=== PATIENT | male | born 1945 | race Caucasian/White ===

== ENCOUNTER → 2017-05-08 | Outpatient (CLI) | payer MEDICARE | LOC: GMAH 10:34 | PROVIDERS: ATTEND Family Medicine | DX: E78.2 Mixed hyperlipidemia (principal); E11.9 Type 2 diabetes mellitus without complications; I10 Essential (primary) hypertension; Z12.5 Encounter for screening for malignant neoplasm of prostate | CPT/HCPCS: 84443; 84550; G0103 ==

== ENCOUNTER → 2019-05-12 | Outpatient (CLI) | payer MEDICARE | LOC: GMAH 10:16 | PROVIDERS: ATTEND Family Medicine | DX: I10 Essential (primary) hypertension (principal); E78.2 Mixed hyperlipidemia; E11.9 Type 2 diabetes mellitus without complications; Z12.5 Encounter for screening for malignant neoplasm of prostate | CPT/HCPCS: 84443; 84550; G0103 ==

== ENCOUNTER 2020-01-10 18:04 | Emergency (ER) | payer MEDICARE ==
--- NOTE | 2020-01-10 19:48 | CT ---
PROCEDURE: CT Head CLINICAL HISTORY: 74 years Male weakness, hx of previous strokes, mild confusion TECHNIQUE: Contiguous axial CT images obtained through the brain without IV contrast. Coronal and sagittal reformatted images also provided. This exam was performed according to our department optimization program which includes automated exposure control, adjustment of the mA and/or kv according to patient size and/or use of iterative reconstruction technique. COMPARISON: 03/01/2016 FINDINGS: There is no intracranial hemorrhage, extraaxial collection, or evidence of acute transcortical infarction. There are chronic-appearing left frontal, left parietal, left temporal, and bilateral periventricular infarcts. These have progressed since the prior exam of 2016. Confluent areas of low attenuation within the periventricular and subcortical white matter again seen, compatible with chronic microvascular disease. There is mild to moderate diffuse volume loss without midline shift. Vascular calcifications are noted. No lesion of the skull base or calvarium is identified. The paranasal sinuses and mastoid air cells are clear. IMPRESSION: No acute intracranial abnormality. Chronic ischemic changes have progressed since 2016. Diffuse volume loss. Electronically signed by: Dasha Alves MD 01/10/2020 7:46 PM [facility]
--- NOTE | 2020-01-10 19:51 | RAD ---
EXAM DESCRIPTION: XR Chest, 1 View CLINICAL HISTORY: 74 years Male generalized weakness TECHNIQUE: One view of the chest. COMPARISON: 03/02/2016 FINDINGS: Again seen are median sternotomy wires and surgical clips in the neck. The lungs are clear without focal consolidation, effusion, or pneumothorax. Stable cardiomediastinal silhouette without evidence of congestive failure. No acute osseous abnormalities. IMPRESSION: No acute cardiopulmonary abnormalities. Electronically signed by: Dasha Alves MD 01/10/2020 7:49 PM [facility]
[2020-01-10] MEDS ORDERED: POTASSIUM CHLORIDE ELIXIR 20 MEQ/15 ML UD PO ONE (20:13)
[2020-01-10] MEDS ORDERED: OSELTAMIVIR 75 MG CAP PO ONE (20:14)
[2020-01-10] MEDS ORDERED: IBUPROFEN 200 MG TAB PO ONE (20:15)
--- NOTE | 2020-01-10 20:20 | ED.PDOC ---
History of Present Illness - General Chief Complaint: General Stated Complaint: weakness and cough Time Seen by Provider: 01/10/20 18:28 Source: patient Exam Limitations: no limitations - History of Present Illness Initial Comments: The patient is a 74-year-old male presented emergency room secondary to vague generalized symptoms. The patient does have a runny nose and a little bit of a sore throat. His family reports that he has been having some mild increased confusion and some increased gait instability. The patient has difficulty communicating as well as ambulating to start with secondary to multiple strokes in the past. He has difficult to communicate with. No shortness of breath and no chest pain. No nausea or vomiting. No syncope. No recent trauma. As he has had multiple strokes in the past family is concerned that he may be experiencing sequela from another one. Timing/Duration: 24 hours Severity: moderate Improving Factors: nothing Worsening Factors: nothing Associated Symptoms: cough, loss of appetite, malaise, weakness - Generalized Allergies/Adverse Reactions: Allergies Sulfa Antibiotics Adverse Reaction (Verified 03/01/16 22:07) Home Medications: Ambulatory Orders Aspirin 325 mg PO QD 03/01/16 Glimepiride 1 mg PO BEDTIME 03/01/16 Glimepiride 2 mg PO DAILY 03/01/16 amLODIPine BESYLATE [Norvasc] 10 mg PO BID 03/01/16 Azithromycin Tab [Zithromax] 250 mg PO QD #5 tab 03/03/16 Cephalexin [Keflex] 500 mg PO TID #15 cap 03/03/16 Hydrochlorothiazide 12.5 mg PO QAM #30 tab 03/03/16 Metoprolol Tartrate 50 mg PO QPM #0 03/03/16 Metoprolol Tartrate 100 mg PO QAM #30 tab 03/03/16 Potassium Chloride [K-Tab] 10 meq PO QAM #30 tab 03/03/16 Valsartan 160 mg PO DAILY #0 03/03/16 Oseltamivir Capsule [Tamiflu] 75 mg PO BID 5 Days #10 capsule 01/10/20 Review of Systems - Review of Systems Constitutional: States: malaise, weakness - Generalized EENTM: States: nose congestion, throat pain - Mild Respiratory: States: cough Cardiology: States: no symptoms reported Gastrointestinal/Abdominal: States: no symptoms reported Genitourinary: States: no symptoms reported Musculoskeletal: States: no symptoms reported Skin: States: no symptoms reported Neurological: States: see HPI Endocrine: States: no symptoms reported All other Systems: No Change from Baseline Past Medical History (General) - Patient Medical History Hx Seizures: No Hx Stroke: Yes - 2000 Hx Dementia: No Hx Asthma: No Hx of COPD: No Hx Cardiac Disorders: Yes Hx Congestive Heart Failure: No Hx Pacemaker: No Hx Hypertension: Yes Hx Thyroid Disease: No Hx Diabetes: No Hx Gastroesophageal Reflux: No Hx Renal Disease: No Hx Cancer: No Hx of HIV: No Hx Hepatitis C: No Hx MRSA: Yes MRSA Source:: Wound Surgical History: coronary bypass surgery - Vaccination History Hx Tetanus, Diphtheria Vaccination: No Hx Influenza Vaccination: No Hx Pneumococcal Vaccination: No - Social History Hx Tobacco Use: Yes Hx Chewing Tobacco Use: Yes Hx Alcohol Use: No Hx Substance Use: No Hx Substance Use Treatment: No Hx Depression: No Hx Physical Abuse: No Hx Emotional Abuse: No Hx Suspected Abuse: No Family Medical History - Family History Mother Family History: Unknown Physical Exam - Physical Exam General Appearance: Alert, Comfortable, No apparent distress Eye Exam: bilateral normal Ears, Nose, Throat: hearing grossly normal, normal pharynx, nasal congestion, pharyngeal erythema Neck: non-tender, supple Respiratory: lungs clear - He does have a clearing cough., normal breath sounds, no respiratory distress, no accessory muscle use Cardiovascular/Chest: normal peripheral pulses, no edema, other - Regular rate Peripheral Pulses: radial,right: 2+, radial,left: 2+ Gastrointestinal/Abdominal: non tender, soft Rectal Exam: deferred Back Exam: no CVA tenderness, no vertebral tenderness Extremity: normal range of motion - Given his chronic neurological limitations, non-tender, no calf tenderness, normal capillary refill, pedal edema - He does have trace pedal edema to the right lower extremity 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 Chronic neurological changes related to previous stroke. Skin Exam: normal color - He does have multiple skin tags. Comments: Vital Signs - 24 hr 01/10/20 01/10/20 18:46 19:05 Temperature 100.7 F H Pulse Rate [ 93 H 92 H monitor] Respiratory 18 16 Rate Blood Pressure 162/79 182/89 [la] O2 Sat by Pulse 97 96 Oximetry Progress - Progress Progress: 01/10/20 20:23 The patient is a 74-year-old male presented emergency room with nonspecific symptoms. Work-up including x-rays, CT scans and lab work failed to show any other acute pathology aside from influenza A. Patient is going to be placed on Tamiflu for 5 days. He needs to keep himself well-hydrated. Motrin can be used for fever and discomfort. He has mild hypokalemia and was given a dose of oral potassium here. This needs to be followed back up with his primary care doctor in a week or so. ER warnings are given for any significant worsening. No evidence of any sepsis or hypoxia. josé [email or web address] [id number] - Results/Orders Results/Orders: CT scan of the head shows no acute pathology but multiple chronic pathology. See report for details. Chest x-ray shows no acute pathology. Chronic changes only. See report for details. EKG shows what I believe to be a normal sinus rhythm at 93 bpm. There is poor R wave progression. There is LVH criteria. No definitive ST segment or T wave changes indicative of acute ischemia. There is moderate interventricular conduction delay. Correspondingly there is an increased QT interval. Laboratory Tests 01/10/20 01/10/20 01/10/20 19:05 19:05 19:05 WBC 10.7 RBC 4.56 L Hgb 14.0 Hct 41.5 L MCV 91.1 MCH 30.8 MCHC 33.8 RDW 13.8 Plt Count 207 MPV 9.7 Absolute Neuts (auto) 8.20 H Absolute Lymphs (auto) 0.70 L Absolute Monos (auto) 1.60 H Absolute Eos (auto) 0.10 Absolute Basos (auto) 0.10 Neutrophils % 76.6 Lymphocytes % 7.0 L Monocytes % 14.6 H Eosinophils % 0.9 L Basophils % 0.9 PT 10.3 INR 1.04 PTT (SP) 29.9 Sodium 138 Potassium 3.2 L Chloride 100 L Carbon Dioxide 28 Anion Gap 13.2 BUN 18 Creatinine 1.74 H BUN/Creatinine Ratio 10.3 Random Glucose 170 H Serum Osmolality 281.6 Calcium 9.3 Magnesium 2.2 Total Bilirubin 0.6 AST 20 ALT 19 Alkaline Phosphatase 88 Creatine Kinase 55 CK-MB (CK-2) 1.5 CK-MB (CK-2) % Not Reportable Troponin I 0.04 B-Natriuretic Peptide 100.0 Serum Total Protein 7.3 Albumin 4.0 Globulin 3.3 Albumin/Globulin Ratio 1.2 Lipase 43 Departure - Departure Clinical Impression: Influenza A, Hypokalemia Disposition: Discharge to Home or Self Care Condition: Fair Departure Forms: ED Discharge - Pt. Copy, Patient Portal Self Enrollment Instructions: Flu, Adult (DC), Hypokalemia (DC) Diet: bland diet Activity: increase activity as tolerated Referrals: Andrew Polk MD [Primary Care Provider] - 1-2 Weeks Prescriptions: Oseltamivir Capsule [Tamiflu] 75 mg PO BID 5 Days #10 capsule Home Medications: Ambulatory Orders Aspirin 325 mg PO QD 03/01/16 Glimepiride 1 mg PO BEDTIME 03/01/16 Glimepiride 2 mg PO DAILY 03/01/16 amLODIPine BESYLATE [Norvasc] 10 mg PO BID 03/01/16 Azithromycin Tab [Zithromax] 250 mg PO QD #5 tab 03/03/16 Cephalexin [Keflex] 500 mg PO TID #15 cap 03/03/16 Hydrochlorothiazide 12.5 mg PO QAM #30 tab 03/03/16 Metoprolol Tartrate 50 mg PO QPM #0 03/03/16 Metoprolol Tartrate 100 mg PO QAM #30 tab 03/03/16 Potassium Chloride [K-Tab] 10 meq PO QAM #30 tab 03/03/16 Valsartan 160 mg PO DAILY #0 03/03/16 Oseltamivir Capsule [Tamiflu] 75 mg PO BID 5 Days #10 capsule 01/10/20 Additional Instructions: The patient is a 74-year-old male presented emergency room with nonspecific symptoms. Work-up including x-rays, CT scans and lab work failed to show any other acute pathology aside from influenza A. Patient is going to be placed on Tamiflu for 5 days. He needs to keep himself well-hydrated. Motrin can be used for fever and discomfort. He has mild hypokalemia and was given a dose of oral potassium here. This needs to be followed back up with his primary care doctor in a week or so. ER warnings are given for any significant worsening.
[2020-01-10 20:37] VITALS: BP 143/96; TEMP 99.9; O2SAT 97
== END 2020-01-10 20:51 | disposition home or self-care (01) ==
LOC: ER 18:04
DX: J10.1 Influenza due to other identified influenza virus with other respiratory manifestations (principal); E87.6 Hypokalemia; I51.9 Heart disease, unspecified; I10 Essential (primary) hypertension; Z86.73 Personal history of transient ischemic attack (TIA), and cerebral infarction without residual deficits; Z79.899 Other long term (current) drug therapy; Z79.82 Long term (current) use of aspirin; Z88.2 Allergy status to sulfonamides

== ENCOUNTER 2020-03-15 17:14 | Emergency (ER) | payer MEDICARE ==
--- NOTE | 2020-03-15 18:26 | RAD ---
EXAM DESCRIPTION: Abdomen Series CLINICAL HISTORY: 74 years Male increassed fatigue, dementia COMPARISON: None TECHNIQUE: Three images of the chest and abdomen were obtained. FINDINGS: Gas is seen throughout the bowel. Bowel is normal in caliber. Moderate to marked constipation. No intraperitoneal free air. No abnormal calcifications seen. Cardiac size is within normal limits. Central vessels are not increased. Mediastinal surgical clips and sternal wires noted. No infiltrates or effusions seen. Surgical clips cervical soft tissues bilaterally. IMPRESSION: Nonspecific bowel gas pattern. No bowel obstruction or perforation. No active cardiopulmonary disease. Electronically signed by: Mechelle Browne MD 03/15/2020 6:24 PM CDT
[2020-03-15] MEDS ORDERED: SODIUM CHLORIDE 0.9% 1000ML 1,000 ML IVS ONE (18:35)
--- NOTE | 2020-03-15 21:50 | ED.PDOC ---
History of Present Illness - General Chief Complaint: General Stated Complaint: weakness,low HR Time Seen by Provider: 03/15/20 17:18 Source: patient Exam Limitations: no limitations - History of Present Illness Initial Comments: The patient is a 74-year-old male brought in by his secondary to increased drowsiness over the last 3 or 4 days. No other symptoms. The patient does have significant dementia so communicating any difficulty is almost impossible. No evidence of any pain. No history of coughing. No decreased eating. No diarrhea or nausea or vomiting. No new rashes. No falls. No real increased confusion just increased drowsiness. No focal neurological changes. Timing/Duration: other - 3 days Severity: mild Improving Factors: nothing Worsening Factors: nothing Associated Symptoms: denies symptoms Allergies/Adverse Reactions: Allergies Sulfa Antibiotics Adverse Reaction (Verified 03/01/16 22:07) Home Medications: Ambulatory Orders amLODIPine BESYLATE [Norvasc] 5 mg PO DAILY 03/01/16 Amiodarone HCl 200 mg PO DAILY 03/15/20 Apixaban [Eliquis] 5 mg PO BID 03/15/20 Aspirin [Aspirin EC Low Dose] 81 mg PO DAILY 03/15/20 Atorvastatin Calcium [Lipitor] 20 mg PO BEDTIME 03/15/20 Glipizide 5 mg PO BID 03/15/20 QUEtiapine FUMARATE [SEROquel] 25 mg PO DAILY 03/15/20 Sertraline HCl 25 mg PO DAILY 03/15/20 Review of Systems - Review of Systems Review of Systems: 03/15/20 21:49 Review of systems is given by the patient's is he is unable to. Constitutional: States: malaise EENTM: States: no symptoms reported Respiratory: States: no symptoms reported Cardiology: States: no symptoms reported Gastrointestinal/Abdominal: States: no symptoms reported Genitourinary: States: no symptoms reported Musculoskeletal: States: no symptoms reported Skin: States: no symptoms reported Neurological: States: see HPI All other Systems: No Change from Baseline Past Medical History (General) - Patient Medical History Hx Seizures: No Hx Stroke: Yes - 2000 Hx Dementia: No Hx Asthma: No Hx of COPD: No Hx Cardiac Disorders: Yes - Atrial fib Hx Congestive Heart Failure: No Hx Pacemaker: No Hx Hypertension: Yes Hx Thyroid Disease: No Hx Diabetes: Yes Hx Gastroesophageal Reflux: No Hx Renal Disease: No Hx Cancer: No Hx of HIV: No Hx Hepatitis C: No Hx MRSA: Yes MRSA Source:: Wound Surgical History: coronary bypass surgery - Vaccination History Hx Tetanus, Diphtheria Vaccination: No Hx Influenza Vaccination: Yes Hx Pneumococcal Vaccination: Yes - Social History Hx Tobacco Use: Yes Hx Chewing Tobacco Use: Yes Hx Alcohol Use: No Hx Substance Use: No Hx Substance Use Treatment: No Hx Depression: No Hx Physical Abuse: No Hx Emotional Abuse: No Hx Suspected Abuse: No Family Medical History - Family History Mother Family History: Unknown Physical Exam - Physical Exam General Appearance: Alert, Comfortable, No apparent distress Eye Exam: bilateral normal Ears, Nose, Throat: hearing grossly normal, normal pharynx Neck: non-tender, supple Respiratory: lungs clear, normal breath sounds, no respiratory distress, no accessory muscle use Cardiovascular/Chest: normal peripheral pulses, regular rate, rhythm, no edema Peripheral Pulses: radial,right: 2+, radial,left: 2+, dorsalis pedis,right: 2+, dorsalis pedis,left: 2+ Gastrointestinal/Abdominal: non tender, soft Rectal Exam: deferred Back Exam: no CVA tenderness, no vertebral tenderness Extremity: normal range of motion, non-tender, normal inspection, no pedal estrella a, normal capillary refill 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, alert, normal mood/affect - Given his chronic dementia, other - Chronic dementia Skin Exam: normal color Comments: Vital Signs - 24 hr 03/15/20 03/15/20 03/15/20 17:27 18:15 18:32 Temperature 97.6 F Pulse Rate [ 61 67 63 Left Brachial] Respiratory 16 16 Rate Blood Pressure 123/74 126/85 145/79 [Left Arm] O2 Sat by Pulse 99 96 Oximetry 03/15/20 03/15/20 03/15/20 18:33 19:15 20:15 Temperature Pulse Rate [ 76 59 L 65 Left Brachial] Respiratory 16 14 Rate Blood Pressure 119/72 139/75 144/77 [Left Arm] O2 Sat by Pulse 97 96 Oximetry 03/15/20 17:34 Telemetry .CONTINUOUS Vital Signs-Tilt PRN 03/15/20 17:45 EKG STAT shows sinus bradycardia at 58 bpm. Normal axis. Poor R wave progression. Borderline LVH. No ST segment or T wave changes indicative of acute ischemia. Borderline prolonged QT interval. First-degree AV block. Laboratory Results - last 24 hr 03/15/20 03/15/20 03/15/20 17:45 17:45 17:45 WBC 10.0 RBC 4.79 Hgb 14.5 Hct 43.1 MCV 89.9 MCH 30.3 MCHC 33.7 RDW 13.1 Plt Count 225 MPV 9.1 Absolute Neuts (auto) 7.20 H Absolute Lymphs (auto) 1.50 Absolute Monos (auto) 1.00 H Absolute Eos (auto) 0.20 Absolute Basos (auto) 0.10 Neutrophils % 71.8 Lymphocytes % 15.0 L Monocytes % 10.4 H Eosinophils % 1.9 Basophils % 0.9 PT 10.4 INR 1.05 PTT (SP) 29.9 Sodium 137 Potassium 4.2 Chloride 104 Carbon Dioxide 28 Anion Gap 9.2 L BUN 32 H Creatinine 2.50 H BUN/Creatinine Ratio 12.8 Random Glucose 107 H Serum Osmolality 281.2 Lactic Acid Calcium 8.9 Magnesium 2.5 Total Bilirubin 0.5 AST 13 ALT 16 Alkaline Phosphatase 79 Creatine Kinase 30 L CK-MB (CK-2) 1.9 CK-MB (CK-2) % Not Reportable Troponin I 0.02 B-Natriuretic Peptide 25.1 Serum Total Protein 6.5 Albumin 3.3 Globulin 3.2 Albumin/Globulin Ratio 1.0 L TSH 4.66 Urine Color Urine Appearance Urine pH Ur Specific Pimento Urine Protein Urine Glucose (UA) Urine Ketones Urine Blood Urine Nitrite Urine Bilirubin Urine Urobilinogen Ur Leukocyte Esterase Urine RBC Urine WBC Ur Epithelial Cells Urine Bacteria 03/15/20 03/15/20 17:45 20:40 WBC RBC Hgb Hct MCV MCH MCHC RDW Plt Count MPV Absolute Neuts (auto) Absolute Lymphs (auto) Absolute Monos (auto) Absolute Eos (auto) Absolute Basos (auto) Neutrophils % Lymphocytes % Monocytes % Eosinophils % Basophils % PT INR PTT (SP) Sodium Potassium Chloride Carbon Dioxide Anion Gap BUN Creatinine BUN/Creatinine Ratio Random Glucose Serum Osmolality Lactic Acid 1.1 Calcium Magnesium Total Bilirubin AST ALT Alkaline Phosphatase Creatine Kinase CK-MB (CK-2) CK-MB (CK-2) % Troponin I B-Natriuretic Peptide Serum Total Protein Albumin Globulin Albumin/Globulin Ratio TSH Urine Color Yellow Urine Appearance Clear Urine pH 6.0 Ur Specific Pimento 1.010 Urine Protein Negative Urine Glucose (UA) Negative Urine Ketones Negative Urine Blood Negative Urine Nitrite Negative Urine Bilirubin Negative Urine Urobilinogen 0.2 Ur Leukocyte Esterase Negative Urine RBC 0 Urine WBC 0 Ur Epithelial Cells 0-1 Urine Bacteria 0 Acute abdominal series shows moderate constipation otherwise no obvious acute pathology. Progress - Progress Progress: 03/15/20 21:52 The patient is a 74-year-old male with significant dementia presenting with his secondary to increased malaise and drowsiness over the last 3 or 4 days. The patient does have mild to moderate dehydration with mild acute renal failure. This is likely contributing to increasing the potency of several of his medications including the Seroquel and amiodarone. He does have mild bradycardia. I would recommend holding the Seroquel and amiodarone for 2 days. I would recommend that the patient at least take in 1/2 a gallon to three quarters of a gallon of liquid daily. The patient does have some constipation noted on x-ray and this is likely also a function of dehydration. A daily fiber supplement such as Metamucil may help. I would also recommend holding the cholesterol medication for the next couple of days as well until he is better hydrated. He did receive a liter of IV fluids here. He does need to follow back up with his primary care doctor in for 5 days for a repeat blood draw to check on his kidneys. ER warnings are given. josé clark [id number] Departure - Departure Clinical Impression: Dehydration, Somnolence, daytime Constipation Qualifiers: Constipation type: unspecified constipation type Qualified Code(s): K59.00 - Constipation, unspecified Acute renal failure Qualifiers: Acute renal failure type: unspecified Qualified Code(s): N17.9 - Acute kidney failure, unspecified Adverse effects of medication Qualifiers: Encounter type: initial encounter Qualified Code(s): T50.905A - Adverse effect of unspecified drugs, medicaments and biological substances, initial encounter Disposition: Discharge to Home or Self Care Departure Forms: ED Discharge - Pt. Copy, Patient Portal Self Enrollment Instructions: Dehydration, Adult (DC), Constipation, Adult (DC) Diet: regular diet - High-fiber Activity: increase activity as tolerated Referrals: Andrew Polk MD [Primary Care Provider] - 1-2 Weeks Home Medications: Ambulatory Orders amLODIPine BESYLATE [Norvasc] 5 mg PO DAILY 03/01/16 Amiodarone HCl 200 mg PO DAILY 03/15/20 Apixaban [Eliquis] 5 mg PO BID 03/15/20 Aspirin [Aspirin EC Low Dose] 81 mg PO DAILY 03/15/20 Atorvastatin Calcium [Lipitor] 20 mg PO BEDTIME 03/15/20 Glipizide 5 mg PO BID 03/15/20 QUEtiapine FUMARATE [SEROquel] 25 mg PO DAILY 03/15/20 Sertraline HCl 25 mg PO DAILY 03/15/20 Additional Instructions: The patient is a 74-year-old male with significant dementia presenting with his secondary to increased malaise and drowsiness over the last 3 or 4 days. The patient does have mild to moderate dehydration with mild acute renal failure. This is likely contributing to increasing the potency of several of his medications including the Seroquel and amiodarone. He does have mild bradycardia. I would recommend holding the Seroquel and amiodarone for 2 days. I would recommend that the patient at least take in 1/2 a gallon to three quarters of a gallon of liquid daily. The patient does have some constipation noted on x-ray and this is likely also a function of dehydration. A daily fiber supplement such as Metamucil may help. I would also recommend holding the cholesterol medication for the next couple of days as well until he is better hydrated. He did receive a liter of IV fluids here. He does need to follow back up with his primary care doctor in for 5 days for a repeat blood draw to check on his kidneys. ER warnings are given.
[2020-03-15 22:24] VITALS: BP 157/99; TEMP 98.4; O2SAT 99
== END 2020-03-15 22:20 | disposition home or self-care (01) ==
LOC: ER 17:14
DX: E86.0 Dehydration (principal); K59.00 Constipation, unspecified; N17.9 Acute kidney failure, unspecified; R53.1 Weakness; T50.905A Adverse effect of unspecified drugs, medicaments and biological substances, initial encounter; I10 Essential (primary) hypertension; I48.91 Unspecified atrial fibrillation; E11.9 Type 2 diabetes mellitus without complications; Z79.82 Long term (current) use of aspirin; Z79.899 Other long term (current) drug therapy; Z86.73 Personal history of transient ischemic attack (TIA), and cerebral infarction without residual deficits; Z87.891 Personal history of nicotine dependence; Y92.9 Unspecified place or not applicable
CPT/HCPCS: 36415; 74019; 80053; 81001; 82550; 82553; 83605; 83735; 83880; 84443; 84484; 85025; 85610; 85730; 87502; 93005; J7030

== ENCOUNTER 2020-04-17 13:23 | Emergency (ER) | payer MEDICARE ==
[2020-04-17] MEDS ORDERED: PROCHLORPERAZINE INJ 10 MG/2 ML VIAL IV ONE (15:24)
--- NOTE | 2020-04-17 16:15 | CT ---
EXAM: CT Head Without Intravenous Contrast CLINICAL HISTORY: Worsening head pain on blood Eloquis. TECHNIQUE: Axial computed tomography images of the head/brain without intravenous contrast. Sagittal and coronal reformatted images were created and reviewed. This CT exam was performed using one or more of the following dose reduction techniques: automated exposure control, adjustment of the mA and/or kV according to patient size, and/or use of iterative reconstruction technique. COMPARISON: 01/10/2020. FINDINGS: Brain: Encephalomalacia consistent with old left MCA territory and basal ganglia infarcts. There is age related cortical atrophy and periventricular white matter hypodensity most consistent with chronic small ischemic change. No acute infarct, hemorrhage or mass. Ventricles: Unremarkable. No ventriculomegaly. Bones/joints: Unremarkable. No acute fracture. Soft tissues: Unremarkable. Sinuses: Unremarkable as visualized. No acute sinusitis. Mastoid air cells: Unremarkable as visualized. No mastoid effusion. IMPRESSION: Stable chronic changes as above. No acute disease. Electronically signed by: Sandra Nathan MD 04/17/2020 4:14 PM CDT
--- NOTE | 2020-04-17 16:21 | ED.PDOC ---
History of Present Illness - General Chief Complaint: Headache Stated Complaint: occipital headache Time Seen by Provider: 04/17/20 15:22 Source: patient, RN notes reviewed, Vital Signs reviewed, family - Exam Limitations: no limitations - History of Present Illness Initial Comments: Patient is a 74-year-old white male who presents with complaints of headache and neck pain. This started a couple of days ago and has worsened. Patient denies any falls or trauma. He is on Eliquis. Patient denies any fever, chills, nausea, vomiting, diarrhea.The headache is throbbing in nature. Nothing seems to make it better, worse when he bends over. The pain is moderate in intensity. It is nonradiating. The pain is the worst at the base of his skull bilaterally where the head attaches to the neck. He has denies midline tenderness to palpation Allergies/Adverse Reactions: Allergies Sulfa Antibiotics Adverse Reaction (Verified 03/01/16 22:07) Home Medications: Ambulatory Orders amLODIPine BESYLATE [Norvasc] 5 mg PO DAILY 03/01/16 Amiodarone HCl 200 mg PO DAILY 03/15/20 Apixaban [Eliquis] 5 mg PO BID 03/15/20 Aspirin [Aspirin EC Low Dose] 81 mg PO DAILY 03/15/20 Atorvastatin Calcium [Lipitor] 20 mg PO BEDTIME 03/15/20 Glipizide 5 mg PO BID 03/15/20 QUEtiapine FUMARATE [SEROquel] 25 mg PO DAILY 03/15/20 Sertraline HCl 25 mg PO DAILY 03/15/20 Prochlorperazine Tab [Compazine Tab] 10 mg PO Q8H #12 tab 04/17/20 Past Medical History (General) - Patient Medical History Hx Seizures: No Hx Stroke: Yes - 2000 Hx Dementia: No Hx Asthma: No Hx of COPD: No Hx Cardiac Disorders: Yes - Atrial fib Hx Congestive Heart Failure: No Hx Pacemaker: No Hx Hypertension: Yes Hx Thyroid Disease: No Hx Diabetes: Yes Hx Gastroesophageal Reflux: No Hx Renal Disease: No Hx Cancer: No Hx of HIV: No Hx Hepatitis C: No Hx MRSA: Yes MRSA Source:: Wound Surgical History: coronary bypass surgery, other - Vaccination History Hx Tetanus, Diphtheria Vaccination: No Hx Influenza Vaccination: Yes Hx Pneumococcal Vaccination: Yes - Social History Hx Tobacco Use: Yes Hx Chewing Tobacco Use: Yes Hx Alcohol Use: No Hx Substance Use: No Hx Substance Use Treatment: No Hx Depression: No Hx Physical Abuse: No Hx Emotional Abuse: No Hx Suspected Abuse: No Family Medical History - Family History Mother Family History: Unknown Progress - Progress Progress: Differential diagnosis: Intracranial bleed, tension headache, migraine headache, cervical spine fracture among others. 04/17/20 17:06 Patient's headache has resolved after the IV Compazine. I suspect this is a tension headache. Patient has spasms at the base of his occiput where it attaches to the cervical spine. CT scan is unremarkable. Plan on discharge home with follow-up with PCP. I will prescribe Compazine for his headaches. I discussed this plan of care with the patient and his and they voiced understanding and agreement with the plan of care. aMyo Quinones M.D. #[id number] - Results/Orders Results/Orders: EXAM: CT Head Without Intravenous Contrast CLINICAL HISTORY: Worsening head pain on blood Eloquis. TECHNIQUE: Axial computed tomography images of the head/brain without intravenous contrast. Sagittal and coronal reformatted images were created and reviewed. This CT exam was performed using one or more of the following dose reduction techniques: automated exposure control, adjustment of the mA and/or kV according to patient size, and/or use of iterative reconstruction technique. COMPARISON: 01/10/2020. FINDINGS: Brain: Encephalomalacia consistent with old left MCA territory and basal ganglia infarcts. There is age related cortical atrophy and periventricular white matter hypodensity most consistent with chronic small ischemic change. No acute infarct, hemorrhage or mass. Ventricles: Unremarkable. No ventriculomegaly. Bones/joints: Unremarkable. No acute fracture. Soft tissues: Unremarkable. Sinuses: Unremarkable as visualized. No acute sinusitis. Mastoid air cells: Unremarkable as visualized. No mastoid effusion. IMPRESSION: Stable chronic changes as above. No acute disease. Electronically signed by: Sandra Nathan MD 04/17/2020 4:14 PM Vital Signs 04/17/20 04/17/20 13:40 14:24 Temperature 97.4 F L 97.4 F L Pulse Rate [ 70 60 left brachial] Respiratory 18 18 Rate Blood Pressure 176/85 126/89 [left brachial] O2 Sat by Pulse 99 96 Oximetry Departure - Departure Clinical Impression: Headache Qualifiers: Headache type: tension-type Headache chronicity pattern: acute headache Intractability: not intractable Qualified Code(s): G44.209 - Tension-type headache, unspecified, not intractable Time of Disposition: 17:13 Disposition: Discharge to Home or Self Care Condition: Good Departure Forms: ED Discharge - Pt. Copy, Patient Portal Self Enrollment Instructions: DI for Headache Diet: resume usual diet Activity: ambulate only with walker, increase activity as tolerated Referrals: Andrew Polk MD [Primary Care Provider] - 1-5 Days Prescriptions: Prochlorperazine Tab [Compazine Tab] 10 mg PO Q8H #12 tab Home Medications: Ambulatory Orders amLODIPine BESYLATE [Norvasc] 5 mg PO DAILY 03/01/16 Amiodarone HCl 200 mg PO DAILY 03/15/20 Apixaban [Eliquis] 5 mg PO BID 03/15/20 Aspirin [Aspirin EC Low Dose] 81 mg PO DAILY 03/15/20 Atorvastatin Calcium [Lipitor] 20 mg PO BEDTIME 03/15/20 Glipizide 5 mg PO BID 03/15/20 QUEtiapine FUMARATE [SEROquel] 25 mg PO DAILY 03/15/20 Sertraline HCl 25 mg PO DAILY 03/15/20 Prochlorperazine Tab [Compazine Tab] 10 mg PO Q8H #12 tab 04/17/20
[2020-04-17 18:33] VITALS: TEMP 97.6; O2SAT 99
[2020-04-17 18:34] VITALS: BP 103/45
== END 2020-04-17 17:25 | disposition home or self-care (01) ==
LOC: ER 13:23
DX: G44.209 Tension-type headache, unspecified, not intractable (principal); I48.91 Unspecified atrial fibrillation; E11.9 Type 2 diabetes mellitus without complications; I10 Essential (primary) hypertension; Z79.01 Long term (current) use of anticoagulants; Z87.891 Personal history of nicotine dependence
CPT/HCPCS: 70450; J0780

== ENCOUNTER 2020-04-25 16:01 | Emergency (ER) | payer MEDICARE ==
[2020-04-25] MEDS ORDERED: SODIUM CHLORIDE 0.9% (FLUSH) 10 ML SYG IV PRN (16:18)
[2020-04-25 16:31] VITALS: TEMP 98
[2020-04-25] MEDS ORDERED: NEOMYCIN-BACITRACIN-POLYMYXIN 0.9 GM UD TOP ONE (16:53)
--- NOTE | 2020-04-25 16:59 | RAD ---
EXAM DESCRIPTION: Chest,1 View CLINICAL HISTORY: Fell, occipital head collided on parking lot cemented COMPARISON: Chest radiograph dated January 10, 2020 TECHNIQUE: One view radiograph of the chest FINDINGS: Postsurgical changes with median sternotomy wires and ostial marker. Cardiac silhouette shows normal heart size. Pulmonary vascularity is within normal limits. Lungs show no confluent infiltrates. No pleural effusion. No pneumothorax. No acute osseous abnormality. IMPRESSION: No acute cardiopulmonary process. Electronically signed by: Yobany Esteban MD 04/25/2020 4:58 PM CDT
--- NOTE | 2020-04-25 17:01 | ED.PDOC ---
History of Present Illness - General Chief Complaint: Trauma Time Seen by Provider: 04/25/20 16:18 Source: patient, family Exam Limitations: no limitations - History of Present Illness Initial Comments[facility] AND HIT OCCIPITAL HEAD. NO LOC. USES WALKER, WITNESSED AND NOTICED HE TRIPPED/SLIPPED. DENIES PAIN. H/O STROKE - SLURS SPEECH AT BASELINE; NO ACUTE CHANGE TODAY. ELIQUIS FOR AFIB. Severity: moderate Improving Factors: nothing Worsening Factors: nothing Associated Symptoms: denies symptoms Allergies/Adverse Reactions: Allergies Sulfa Antibiotics Adverse Reaction (Verified 03/01/16 22:07) Home Medications: Ambulatory Orders amLODIPine BESYLATE [Norvasc] 5 mg PO DAILY 03/01/16 Amiodarone HCl 200 mg PO DAILY 03/15/20 Apixaban [Eliquis] 5 mg PO BID 03/15/20 Aspirin [Aspirin EC Low Dose] 81 mg PO DAILY 03/15/20 Atorvastatin Calcium [Lipitor] 20 mg PO BEDTIME 03/15/20 Glipizide 5 mg PO BID 03/15/20 QUEtiapine FUMARATE [SEROquel] 25 mg PO DAILY 03/15/20 Sertraline HCl 25 mg PO DAILY 03/15/20 Prochlorperazine Tab [Compazine Tab] 10 mg PO Q8H #12 tab 04/17/20 Review of Systems - Review of Systems Constitutional: Denies: chills, fever, weakness EENTM: States: other - PAIN IN BACK OF HEAD. . Denies: eye pain, blurred vision, ear pain, nose pain, throat pain, mouth pain Respiratory: Denies: cough, short of breath Cardiology: Denies: chest pain, palpitations Gastrointestinal/Abdominal: Denies: abdominal pain, nausea Genitourinary: Denies: dysuria, frequency Musculoskeletal: Denies: back pain, joint pain, neck pain Skin: Denies: lesions, lumps Neurological: States: headache - OCCIPITAL, FROM FALL. . Denies: weakness Endocrine: Denies: unexplained weight gain, unexplained weight loss Hematologic/Lymphatic: States: easy bleeding, easy bruising All other Systems: Reviewed and Negative Past Medical History (General) - Patient Medical History Hx Seizures: No Hx Stroke: Yes - 2000 Hx Dementia: No Hx Asthma: No Hx of COPD: No Hx Cardiac Disorders: Yes - Atrial fib Hx Congestive Heart Failure: No Hx Pacemaker: No Hx Hypertension: Yes Hx Thyroid Disease: No Hx Diabetes: Yes Hx Gastroesophageal Reflux: No Hx Renal Disease: No Hx Cancer: No Hx of HIV: No Hx Hepatitis C: No Hx MRSA: Yes MRSA Source:: Wound Surgical History: other - Vaccination History Hx Tetanus, Diphtheria Vaccination: Yes Hx Influenza Vaccination: Yes Hx Pneumococcal Vaccination: Yes - Social History Hx Tobacco Use: Yes Hx Chewing Tobacco Use: No Hx Alcohol Use: No Hx Substance Use: No Hx Substance Use Treatment: No Hx Depression: No Hx Physical Abuse: No Hx Emotional Abuse: No Hx Suspected Abuse: No - Female History Patient is a Female of Child Bearing Age (10 -59 yrs old): No Family Medical History - Family History Mother Family History: Unknown Physical Exam - Physical Exam General Appearance: Alert, Unkempt Eye Exam: bilateral normal Ears, Nose, Throat: hearing grossly normal, normal ENT inspection, normal pharynx, other - OCCIPITAL ABRASION. NO LAC REQUIRING SUTURES. 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 NO LAC. Lymphatic: no adenopathy Progress - Progress Progress: 04/25/20 18:43 W/U OF OTHER ETX NEG (PT AND STATE HE SLIPPED/TRIPPED) CMP ELEV BUN/CR CHRONIC AND PT AT BASELINE PER CHART REVIEW. CBC SLIGHTLY ELEV WBC 11 AND NEUTS. ACCUCHECK 158. XCR NEG. COAGS NEG. CARD ENZ NEG AND EKG NO ACUTE ST CHANGES THUS NO MN CONCERN. EKG SINUS WITH WIDENED QRS, NONSPECIFIC INTRAVENTRICULAR BLOCK, PROLONGED QT INTERVAL (NO PREVIOUS EKG FOR COMPARISON). PT SEES CARDIOLOGY IN [place] (ON ELIQUIS FOR AFIB) AND HAS F/U APPT, PER PT'S . NO CP. W/U NEG OF INJURIES: CT BRAIN AND C-SPINE NEG. PT DENIES ANY OTHER C/O. SAFE FOR DC TO HOME WITH . RETURN PRECAUTIONS GIVEN. - EKG/XRAY/CT EKG: Sinus Departure - Departure Clinical Impression: History of stroke, Nonspecific intraventricular block Abrasion of head Qualifiers: Encounter type: initial encounter Qualified Code(s): S00.91XA - Abrasion of unspecified part of head, initial encounter Fall from slip, trip, or stumble Qualifiers: Encounter type: initial encounter Qualified Code(s): W01.0XXA - Fall on same level from slipping, tripping and stumbling without subsequent striking against object, initial encounter Head pain Qualifiers: Headache type: post-traumatic Headache chronicity pattern: acute headache Intractability: not intractable Qualified Code(s): G44.319 - Acute post- traumatic headache, not intractable Chronic renal failure Qualifiers: Chronic kidney disease stage: unspecified stage Qualified Code(s): N18.9 - Chronic kidney disease, unspecified Disposition: Discharge to Home or Self Care Condition: Good Departure Forms: ED Discharge - Pt. Copy, Patient Portal Self Enrollment Instructions: Preventing Falls Diet: resume usual diet Activity: increase activity as tolerated Referrals: Andrew Polk MD [Primary Care Provider] - 1-2 Weeks Home Medications: Ambulatory Orders amLODIPine BESYLATE [Norvasc] 5 mg PO DAILY 03/01/16 Amiodarone HCl 200 mg PO DAILY 03/15/20 Apixaban [Eliquis] 5 mg PO BID 03/15/20 Aspirin [Aspirin EC Low Dose] 81 mg PO DAILY 03/15/20 Atorvastatin Calcium [Lipitor] 20 mg PO BEDTIME 03/15/20 Glipizide 5 mg PO BID 03/15/20 QUEtiapine FUMARATE [SEROquel] 25 mg PO DAILY 03/15/20 Sertraline HCl 25 mg PO DAILY 03/15/20 Prochlorperazine Tab [Compazine Tab] 10 mg PO Q8H #12 tab 04/17/20 Additional Instructions: Please see your addiction counselor, as already scheduled. Please return to the ER if you notice any new troubles or symptoms. Please clean the back of the head wound twice per day with soap and water, apply neosporin, and cover with a bandaid.
--- NOTE | 2020-04-25 17:32 | CT ---
EXAM DESCRIPTION: CT Head without contrast CLINICAL HISTORY: FELL; OCCIPITAL HEAD COLLIDED ON PKG LOT CEMENT. COMPARISON: Previous CT head April 17, 2020 TECHNIQUE: Noncontrast head CT was performed with routine protocol. FINDINGS: Soft tissue deformity of the posterior left parietal region with skin laceration but without large hematoma. Bone window images in this area are negative for underlying calvarial fracture. Normal rao-white matter differentiation. Ventricles and sulci are prominent consistent with age-related cerebral volume loss. Old left cerebral hemispheric infarct in the middle cerebral arterial distribution with stable appearance compared to previous. Extensive low density in the cerebral white matter consistent with chronic microvascular ischemic disease. Question old cerebellar hemispheric infarctions. No high density hemorrhage, focal edema or shift of the midline. No sulcal effacement. Normal orbital contents. Basilar cisterns appear clear. Intact calvarium with no fracture or lytic lesion. Normal aeration of tympanic cavities and mastoid air cells. Cerumen accumulation in the left external auditory canal. No fluid levels in the paranasal sinuses. Skull base appears intact. Symmetrical internal auditory canals. IMPRESSION: No acute intracranial pathologic process. This exam was performed according to our departmental dose-optimization program, which includes automated exposure control, adjustment of the mA and/or kV according to patient size and/or use of iterative reconstruction technique. Total DLP equals 967.47 mGycm. Electronically signed by: Ashkan Cooper MD 04/25/2020 5:31 PM CDT
--- NOTE | 2020-04-25 17:38 | CT ---
EXAM DESCRIPTION: Cervical Spine CLINICAL HISTORY: FELL; OCCIPITAL HEAD COLLIDED ON PKG LOT CEMENT. COMPARISON: None Available. TECHNIQUE: Cervical CT is performed with thin-section axial imaging. MPRs are created and reviewed as well. FINDINGS: Axial bone window images reveal intact ring of C1. No abnormal widening of the atlantodens interval. No fracture of the vertebral bodies or transverse processes or posterior elements. Lung apices appear clear. No cervical mass or adenopathy. Sagittal reformatted images show normal alignment of vertebral bodies and facets. No jumped facet or facet fracture. Normal craniocervical alignment. No prevertebral soft tissue swelling. No acute avulsion of the spinous processes. Spondylosis: Moderate C3-4 posterior disc/osteophyte complex narrowing the AP diameter of the spinal canal to 1 cm. Severe left neural foraminal narrowing related to uncovertebral spurring. Degenerative narrowing of the atlantodens interval with superior spurring. Vascular stents in the carotid arteries. Coronal reformatted images show normal atlantooccipital and atlantoaxial alignment. The base of the dens is intact as is the body of C2. Intact lateral masses. IMPRESSION: Negative for fracture or posttraumatic subluxation. This exam was performed according to our departmental dose-optimization program, which includes automated exposure control, adjustment of the mA and/or kV according to patient size and/or use of iterative reconstruction technique. Total DLP equals 338.07 mGycm. Electronically signed by: Ashkan Cooper MD 04/25/2020 5:37 PM CDT
[2020-04-25 18:13] VITALS: BP 127/62; O2SAT 98
== END 2020-04-25 19:06 | disposition home or self-care (01) ==
LOC: ER 16:01
DX: S00.91XA Abrasion of unspecified part of head, initial encounter (principal); I13.0 Hypertensive heart and chronic kidney disease with heart failure and stage 1 through stage 4 chronic kidney disease, or unspecified chronic kidney disease; N18.9 Chronic kidney disease, unspecified; E11.22 Type 2 diabetes mellitus with diabetic chronic kidney disease; I48.91 Unspecified atrial fibrillation; G44.319 Acute post-traumatic headache, not intractable; Z86.73 Personal history of transient ischemic attack (TIA), and cerebral infarction without residual deficits; Z79.01 Long term (current) use of anticoagulants; Z87.891 Personal history of nicotine dependence; W01.0XXA Fall on same level from slipping, tripping and stumbling without subsequent striking against object, initial encounter; Y92.481 Parking lot as the place of occurrence of the external cause

== ENCOUNTER → 2020-07-19 | Outpatient (CLI) | payer MEDICARE | END | disposition home or self-care (01) | LOC: GMA MATASK 10:35 | PROVIDERS: ATTEND Family Medicine | DX: Z12.5 Encounter for screening for malignant neoplasm of prostate (principal); E78.2 Mixed hyperlipidemia | CPT/HCPCS: 84443; 84550; G0103 ==